=== PATIENT | female | born 1950 ===

== ENCOUNTER 2017-10-09 13:09 | Emergency (ER) | payer BC, MEDICARE ==
[2017-10-09 13:10] VITALS: BMI 27.4
[2017-10-09 13:28] VITALS: RESP 16; TEMP 98.5; O2SAT 98
[2017-10-09 13:48] LABS: SQUAMOUS EPITHIAL 2 /hpf (0-5); URINE BACTERIA RARE (<OCC); URINE BILIRUBIN NEGATIVE (NEGATIVE); URINE BLOOD NEGATIVE (NEGATIVE); URINE CLARITY Hazy (Clear); URINE COLOR Yellow (YELLOW); URINE GLUCOSE (UA) NORMAL (Normal); URINE LEUKOCYTE ESTERASE NEG Leu/uL (Negative); URINE PROTEIN NEGATIVE (NEGATIVE)
--- NOTE | 2017-10-09 13:59 | C.PDOC ---
History Of Present Illness 67 y/o female comes in for evaluation of diffuse lower back pain that has been gradually developing over the past week. Patient describes pain as localized over lower back, constant, aching with intermittent radiation to bilateral legs. Pt admits, similar sx in past . Otherwise, pt denies any known trauma or injury , fever, chills, sore throat, abd. pain, N/V/D, denies UTI sx, saddle anesthesia, incontinence, denies weakness, sensory or vascular deficits to B/L LEs. Ambulate to ED for evaluation, appears in pain. Time Seen by Provider: 10/09/17 13:30 Chief Complaint (Nursing): Back Pain History Per: Patient History/Exam Limitations: no limitations Onset/Duration Of Symptoms: Days Current Symptoms Are (Timing): Still Present Quality Of Discomfort: "Pain" Previous Symptoms: Back Pain Past Medical History Reviewed: Historical Data, Nursing Documentation, Vital Signs Vital Signs: Last Vital Signs Temp 98.5 F 10/09/17 13:24 Pulse 78 10/09/17 14:29 Resp 16 10/09/17 14:29 BP 121/85 10/09/17 14:29 Pulse Ox 98 10/09/17 14:24 - Medical History PMH: Depression, HTN Other PMH: Gastroesophageal Reflux, Polyps Surgical History: Cholecystectomy Other Surgeries: Hysterectomy - [facility] Procedures ESOPHAGOGASTRODUODENOSCOPY [EGD] W/CLOSED BIOPSY (08/07/14) EXCIS DEBRIDE OF WOUND, INFECT, OR BURN (09/22/01) TETANUS TOXOID ADMINIST (09/22/01) Family History: States: Unknown Family Hx - Social History Hx Tobacco Use: No Hx Alcohol Use: No Hx Substance Use: No - Immunization History Hx Tetanus Toxoid Vaccination: No Hx Influenza Vaccination: No Hx Pneumococcal Vaccination: No Review Of Systems Except As Marked, All Systems Reviewed And Found Negative. Constitutional: Positive for: Fever Gastrointestinal: Positive for: Abdominal Pain. Negative for: Nausea, Vomiting , Diarrhea Musculoskeletal: Positive for: Back Pain (diffuse lower back pain) Physical Exam - Physical Exam Appears: Well, Non-toxic, No Acute Distress Skin: Normal Color, Warm, Dry, No Rash, No Ecchymosis Eye(s): bilateral: PERRL Nose: No Flaring Oral Mucosa: Moist Throat: No Drooling Neck: Normal ROM, Trachea Midline, Supple Cardiovascular: Rhythm Regular, No Murmur, No JVD Respiratory: No Decreased Breath Sounds, No Accessory Muscle Use, No Stridor, No Wheezing Gastrointestinal/Abdominal: Soft, No Tenderness, No Distention, No Guarding Back: No CVA Tenderness, No Vertebral Tenderness, Muscle Spasm (Right lumbar paraspinal), Paraspinal Tenderness (diffuse lumbar R>L) Extremity: Normal ROM, No Tenderness, No Pedal Edema, No Deformity, No Swelling Neurological/Psych: Oriented x3, Normal Speech, Normal Motor, Normal Sensation, Normal Reflexes ED Course And Treatment O2 Sat by Pulse Oximetry: 98 (RA) Pulse Ox Interpretation: Normal - Other Rad L-spine X-Ray: Interpreted by Me, Viewed By Me Interpretation: (+) mod DJD, no acute fx or sublux Progress Note: On re-evaluation, ptis afebrile, hemodynamicaly stable. Non- toxic. Ambulatory in ED with stable gait. Neck: Supple, (-) carotid bruits, (- ) JVD. ENT: no acute findings. Lungs: CTA B/L, BS equal B/L. Abd: benign, (- ) guarding, (-) rebound. Back: (-) CVA tenderness. Neurologicaly intact. L- spine Imaging review (+) mod DJD. UA- no acute abnormalities. Pt has clinical finidngs c/w lumbar radiculopathy. Pt advised on course of ds. ref. to f/u with PMD in 1-2 dyas for re-eavl. Return to ED at any time if any worsening or new changes. Disposition Counseled Patient/Family Regarding: Studies Performed, Diagnosis, Need For Followup, Rx Given - Disposition Referrals: Donnell Russell [Staff Provider] - Disposition: HOME/ ROUTINE Disposition Time: 13:59 Condition: STABLE Additional Instructions: Take pain medication as prescribed Follow up with PMD in 2-3 days for re-evaluation. return to ED if any worsening or new changes. Prescriptions: Gabapentin [Neurontin] 300 mg PO BID #14 cap Methocarbamol [Robaxin] 500 mg PO TID #14 tab Prednisone [Deltasone] 40 mg PO DAILY #8 tablet Instructions: Radiculopathy Forms: [employer] ([place]) Print Language: SAMI - Clinical Impression Clinical Impression: Lumbar radiculopathy - PA / PROFESSOR OF POLITICAL SCIENCE / Resident Statement MD/DO has reviewed & agrees with the documentation as recorded. - Scribe Statement The provider has reviewed the documentation as recorded by the Scribe (Emerald Astudillo) All medical record entries made by the Scribe were at my direction and personally dictated by me. I have reviewed the chart and agree that the record accurately reflects my personal performance of the history, physical exam, medical decision making, and the department course for this patient. I have also personally directed, reviewed, and agree with the discharge instructions and disposition.
[2017-10-09 14:29] VITALS: BP 121/85; PULSE 78
--- NOTE | 2017-10-09 14:50 | RAD ---
Date of service: 10/09/2017 PROCEDURE: Radiographs of the Lumbar Spine. HISTORY: pain COMPARISON: No prior. FINDINGS: BONES: Straightened curvature. No fracture or spondylolisthesis. Multilevel spondylosis appears mild at the inferior lumbar spine, seen worst at L5-S1. DISC SPACES: Disc height loss L5-S1 noted with remaining intervertebral disc heights normal. OTHER FINDINGS: None. IMPRESSION: No fracture or spondylolisthesis identified. Multilevel inferior lumbar degenerative disease.
== END 2017-10-09 14:29 | disposition home or self-care (01) ==
LOC: C.ER 13:09
DX: M54.16 Radiculopathy, lumbar region (principal)